=== PATIENT | male | born 1960 | race Caucasian/White ===

== ENCOUNTER 2017-12-12 12:35 | Emergency (ER) | payer OTHER ==
[~2017-12-12] VITALS: Ht 175.3 cm; Wt 70.3 kg
--- NOTE | 2017-12-12 13:15 | NUR ---
Dr Choi at the bedside for MSE.
[2017-12-12] MEDS ORDERED: LIDOCAINE 1%-EPI 1:100,000 20 ML VIAL ONE (14:51)
[2017-12-12 15:49] VITALS: BP 110/77
--- NOTE | 2017-12-12 15:50 | NUR ---
Patient discharged to home in stable conditon. Written and verbal after care instructions given. Patient verbalizes understanding of instructions.
== END 2017-12-12 15:50 | disposition home or self-care (01) ==
LOC: ER 12:40
DX: S52.691A Other fracture of lower end of right ulna, initial encounter for closed fracture (principal); F11.10 Opioid abuse, uncomplicated; Z59.0 Homelessness; W01.0XXA Fall on same level from slipping, tripping and stumbling without subsequent striking against object, initial encounter; Y93.89 Activity, other specified; Y92.89 Other specified places as the place of occurrence of the external cause; Y99.8 Other external cause status
CPT/HCPCS: 73090; A4217; A4663; J3490

== ENCOUNTER 2018-01-09 14:17 | Emergency (ER) | payer MEDICAID, OTHER ==
[~2018-01-09] VITALS: Ht 175.3 cm; Wt 64.4 kg
[2018-01-09] MEDS ORDERED: IBUPROFEN 600 MG TABLET ONE (14:51)
--- NOTE | 2018-01-09 15:06 | NUR ---
MSE COMPLETED, LEFT SUGAR ARM SPLINT REPLACED, MEDICATION ADMIN, PT D/C'D HOME, ACI GIVEN. PT AMBULATED W/O DIFF/TOOK ALL BELONGINGS.
[2018-01-09 15:07] VITALS: BP 110/72
[2018-01-09] MEDS: IBUPROFEN 600 MG TABLET PO ONE (15:12)
== END 2018-01-09 15:00 | disposition home or self-care (01) ==
LOC: ER 14:19
DX: S52.201D Unspecified fracture of shaft of right ulna, subsequent encounter for closed fracture with routine healing (principal); F11.10 Opioid abuse, uncomplicated; Z59.0 Homelessness; X58.XXXD Exposure to other specified factors, subsequent encounter
CPT/HCPCS: A4663

== ENCOUNTER 2018-01-27 12:55 | Emergency (ER) | payer MEDICAID ==
[~2018-01-27] VITALS: Ht 175.3 cm; Wt 64.4 kg
--- NOTE | 2018-01-27 13:15 | NUR ---
DR JOSE EVALUATED THE PT.
--- NOTE | 2018-01-27 13:37 | NUR ---
PT WAS D/C TO HOME. D/C INSTRUCTIONS GIVEN TO THE PT.
[2018-01-27 13:39] VITALS: BP 139/76
== END 2018-01-27 13:39 | disposition home or self-care (01) ==
LOC: ER 12:55
DX: S52.202D Unspecified fracture of shaft of left ulna, subsequent encounter for closed fracture with routine healing (principal); K21.9 Gastro-esophageal reflux disease without esophagitis; F11.10 Opioid abuse, uncomplicated; Z59.0 Homelessness; X58.XXXD Exposure to other specified factors, subsequent encounter
CPT/HCPCS: 99283; A4663

== ENCOUNTER 2018-07-02 04:20 | Emergency (ER) | payer MEDICAID ==
[~2018-07-02] VITALS: Ht 172.7 cm; Wt 63.5 kg
--- NOTE | 2018-07-02 04:37 | NUR ---
Dr. Carranza at bedside for MSE.
[2018-07-02] MEDS ORDERED: TDAP DIPH,PERTUSS,TET VAC/PF 0.5 ML DISP.SYRIN IM ONE ×2 (04:45→04:51)
[2018-07-02] MEDS ORDERED: NEOMY/BACITRA/POLYMYXIN B OINT UD PACKET TP ONE ×2 (04:45→04:50)
[2018-07-02] MEDS ORDERED: CEphaleXIN 500 MG CAPSULE PO ONE (04:45)
[2018-07-02] MEDS ORDERED: ONDANSETRON ODT 4 MG TAB.RAPDIS SL ONE (04:45)
[2018-07-02] MEDS ORDERED: HYDROCODONE/APAP 10-325 MG TABLET PO ONE (04:45)
[2018-07-02] MEDS ORDERED: ONDANSETRON ODT 4 MG TAB.RAPDIS ONE (04:49)
[2018-07-02] MEDS ORDERED: HYDROCODONE/APAP 10-325 MG TABLET ONE (04:49)
[2018-07-02] MEDS ORDERED: CEphaleXIN 500 MG CAPSULE ONE (04:50)
--- NOTE | 2018-07-02 05:01 | NUR ---
Xray at bedside.
--- NOTE | 2018-07-02 05:49 | NUR ---
Patient discharged in stable conditon. Written and verbal after care instructions given. Patient verbalizes understanding of instructions. Patient ambulated out of ER with steady gait, no acute signs of distress, VSS, all belongings taken. Refuses offer of correction placement. Patient given list of available shelters in surrounding area.
[2018-07-02 05:51] VITALS: BP 147/87
== END 2018-07-02 05:52 | disposition home or self-care (01) ==
LOC: ER 04:23
DX: S52.292A Other fracture of shaft of left ulna, initial encounter for closed fracture (principal); S53.005A Unspecified dislocation of left radial head, initial encounter; S00.81XA Abrasion of other part of head, initial encounter; S60.511A Abrasion of right hand, initial encounter; F12.10 Cannabis abuse, uncomplicated; Z59.0 Homelessness; V19.9XXA Pedal cyclist (driver) (passenger) injured in unspecified traffic accident, initial encounter; Y93.89 Activity, other specified; Y92.89 Other specified places as the place of occurrence of the external cause; Y99.8 Other external cause status
CPT/HCPCS: 73090; 90715; A4217; A4663; Q0162

== ENCOUNTER 2018-07-12 07:26 | Emergency (ER) | payer MEDICAID ==
[~2018-07-12] VITALS: Ht 175.3 cm; Wt 68.0 kg
--- NOTE | 2018-07-12 07:36 | NUR ---
PT A/OX4, PRESENTS TO THE ER REQUESTING FOR MED REFILL BECAUSE HE "LOST MY PRESCRIPTION" FOR HIS CHRONIC ARM PAIN. PT DOES NOT APPEAR TO BE IN ANY APPARENT DISTRESS AT THIS TIME. VSS.
--- NOTE | 2018-07-12 07:39 | NUR ---
NATACHA REHMAN AT BEDSIDE FOR MSE.
--- NOTE | 2018-07-12 07:51 | NUR ---
Patient discharged to home in stable conditon. Written and verbal after care instructions given. Patient verbalizes understanding of instructions. PT D/C W/ PRESCRIPTIONS. ALL BELONGINGS W/ PT. PT SLEF-AMBULATED W/O DIFFICULTY.
[2018-07-12 07:52] VITALS: BP 112/90
== END 2018-07-12 07:53 | disposition home or self-care (01) ==
LOC: ER 07:28
DX: M25.522 Pain in left elbow (principal); F11.10 Opioid abuse, uncomplicated; F17.290 Nicotine dependence, other tobacco product, uncomplicated
CPT/HCPCS: A4663